=== PATIENT | female | born 1975 | race Caucasian/White ===

== ENCOUNTER 2019-04-23 01:35 | Emergency (ER) | payer BC ==
[~2019-04-23] VITALS: Ht 167.6 cm; Wt 116.1 kg
[~2019-04-23 01:35] MED LIST: ADDERALL 20 MG20 MG PO; ADDERALL 30 MG30 MG; BACTRIM DS TAB1 EACH PO; CITALOPRAM HBR20 MG PO; ESTRADIOL1 MG PO; LEVOTHYROXINE150 MCG PO; LEXAPRO10 MG PO; OMEPRAZOLE40 MG PO; SPIRONOLACTONE50 MG PO; SYNTHROID125 MCG; SYNTHROID137 MCG PO; ULTRAM 50MG50 MG PO; ZOLOFT50 MG PO
[2019-04-23 02:26] LABS: BASOPHILS # (AUTO) 0.1 (0.0-0.1); BASOPHILS % 0.8 % (0.0-1.0); EOSINOPHILS # (AUTO) 0.5 (0.0-0.4); EOSINOPHILS % 6.8 % (0.0-6.0); HEMOGLOBIN 12.5 g/dL (12.0-16.0); LYMPHOCYTES # (AUTO) 2.7 (1.0-3.2); LYMPHOCYTES % 36.6 % (18.0-39.1); MEAN CORPUSCULAR HEMOGLOBIN 29.4 pg (28-32); MEAN CORPUSCULAR HGB CONC 32.9 g/dL (31-35); MEAN CORPUSCULAR VOLUME 89.4 fL (81-99); MONOCYTES # (AUTO) 0.5 (0.2-0.8); MONOCYTES % 7.4 % (4.4-11.3); NEUTROPHILS # (AUTO) 3.5 (2.1-6.9); NEUTROPHILS % 48.1 % (38.7-80.0); PLATELET COUNT 321 x10e3/uL (140-360); RED BLOOD COUNT 4.25 x10e6/uL (3.6-5.1); RED CELL DISTRIBUTION WIDTH 14.2 % (11.7-14.4)
[2019-04-23] MEDS ORDERED: ONDANSETRON HCL INJ 2MG/ML 2ML 2 MG/ML VIAL ONE (02:33)
[2019-04-23] MEDS ORDERED: KETOROLAC TROMETHAMINE 30 MG/ML VIAL ONE (02:33)
[2019-04-23 02:43] LABS: ALANINE AMINOTRANSFERASE 13 IU/L (0-55); ALBUMIN 3.3 g/dL (3.5-5.0); ALKALINE PHOSPHATASE 89 IU/L (40-150); ANION GAP 11.8 mmol/L (8-16); BLOOD UREA NITROGEN 15 mg/dL (7-26); BUN/CREATININE RATIO 21 (6-25); CALCIUM 9.6 mg/dL (8.4-10.2); CARBON DIOXIDE 25 mmol/L (22-29); CHLORIDE 105 mmol/L (98-107); CREATININE, SERUM 0.71 mg/dL (0.57-1.11); EST GLOMERULAR FILTRATION RATE > 60 ML/MIN (60-); GLUCOSE 94 mg/dL (74-118); POTASSIUM 3.8 mmol/L (3.5-5.1); SODIUM 138 mmol/L (136-145)
[2019-04-23 02:46] LABS: BILIRUBIN,URINE NEGATIVE (NEGATIVE); CLARITY,URINE CLOUDY (CLEAR); COLOR,URINE YELLOW (YELLOW); KETONES,URINE NEGATIVE (NEGATIVE); LEUKOCYTE ESTERASE ,URINE TRACE (NEGATIVE); NITRITE,URINE NEGATIVE (NEGATIVE); PROTEIN,URINE DIPSTICK NEGATIVE (NEGATIVE); URINE UROBILINOGEN 0.2 mg/dL (0.2 - 1)
[2019-04-23 02:47] LABS: BACTERIA,URINE MANY /HPF; EPITHELIAL CELLS,URINE FEW /LPF
[2019-04-23 04:51] VITALS: BP 119/68
--- NOTE | 2019-04-23 06:01 | Diagnostic Imaging Report ---
EXAMINATION: CT of the abdomen and pelvis without contrast. TECHNIQUE: Spiral CT images of the abdomen and pelvis were performed from the lung bases to the lesser trochanters. No intravenous contrast was given per renal stone protocol. Coronal and sagittal reformatted images were obtained. COMPARISON: CT abdomen and pelvis without contrast 12/02/2008 CLINICAL HISTORY:Right flank pain DISCUSSION: ABSENCE OF INTRAVENOUS CONTRAST DECREASES SENSITIVITY FOR DETECTION OF FOCAL LESIONS AND VASCULAR PATHOLOGY. ABDOMEN/PELVIS: LOWER THORAX: Linear subsegmental atelectasis versus scarring in the lingula. HEPATOBILIARY: No focal hepatic lesions. No intra or extrahepatic biliary ductal dilation. GALLBLADDER: No radio-opaque stones or sludge. No wall thickening. SPLEEN: No splenomegaly. PANCREAS: No focal masses or ductal dilatation. ADRENALS: No adrenal nodules. KIDNEYS/URETERS: No renal or ureteral calculi, hydronephrosis or obstruction. No perinephric stranding or contour abnormalities. PELVIC ORGANS/BLADDER: Bladder is decompressed but grossly unremarkable. No adnexal masses. PERITONEUM/RETROPERITONEUM: No free air or fluid. LYMPH NODES: No intra-abdominal,retroperitoneal, pelvic or inguinal lymphadenopathy. VESSELS: Mild atherosclerotic calcification of the distal abdominal aorta. GI TRACT: No bowel dilation or evidence of obstruction. Appendix is well identified and normal in caliber. No pericolonic inflammatory changes. BONES AND SOFT TISSUES: No aggressive lytic lesions. Small fat-containing umbilical hernia. IMPRESSION: 1. No renal, ureteral or bladder calculi, hydronephrosis or obstruction Signed by: Dr. Guido Mahoney M.D. on 04/23/2019 5:58 AM
--- OUTSIDE RECORDS SUMMARY | 2019-04-23 06:10 | XMS REPORT ---
Author Author [facility] Address Unknown Phone Unavailable Care Team Providers Care Light Cleaner Name Role Phone Vanessa WHITFIELD Unavailable Unavailable Payers Payer Name Policy Type Policy Number Effective Date Expiration Date Problems This patient has no known problems. Allergies, Adverse Reactions, Alerts Allergy Name Allergy Type Status Severity Reaction(s) Onset Date Inactive Date Treating Clinician Comments No Known Allergies DA Active U 2019-01-27 00:00:00 No Known Allergies DA Active U 2018-08-21 00:00:00 No Known Allergies DA Active U 2016-05-05 00:00:00 Medications This patient has no known medications. Results Test Description Test Time Test Comments Text Results Atomic Results Result Comments CT ABDOMEN/PELVIS WO 2019-04-23 05:56:00 [place] [address] Patient Name: CUATE DEMPSEY MR #: [id number] : 1975 Age/Sex: 43/F Req #: [id number] Adm Physician: Ordered by: VERÓNICA WHITFIELD MD Report #: [id number] Location: ER Room/Bed: Procedure: CT/CT ABDOMEN/PELVIS WO Exam Date: 04/23/19 Exam Time: 0237 REPORT STATUS: Signed EXAMINATION: CT of the abdomen and pelvis without contrast. TECHNIQUE: Spiral CT images of the abdomen and pelvis were performed from the lung bases to the lesser trochanters. No intravenous contrast was given per renal stone protocol. Coronal and sagittal reformatted images were obtained. COMPARISON: CT abdomen and pelvis without contrast 12/02/2008 CLINICAL HISTORY:Right flank pain DISCUSSION: ABSENCE OF INTRAVENOUS CONTRAST DECREASES SENSITIVITY FOR DETECTION OF FOCAL LESIONS AND VASCULAR PATHOLOGY. ABDOMEN/PELVIS: LOWER THORAX: Linear subsegmental atelectasis versus scarring in the lingula. HEPATOBILIARY: No focal hepatic lesions. No intra or extrahepatic biliary ductal dilation. GALLBLADDER: No radio-opaque stones or sludge. No wall thickening. SPLEEN: No splenomegaly. PANCREAS: No focal masses or ductal dilatation. ADRENALS: No adrenal nodules. KIDNEYS/URETERS: No renal or ureteral calculi, hydronephrosis or obstruction. No perinephric stranding or contour ab normalities. PELVIC ORGANS/BLADDER: Bladder is decompressed but grossly unremarkable. No adnexal masses. PERITONEUM/RETROPERITONEUM: No free air or fluid. LYMPH NODES: No intra-abdominal,retroperitoneal, pelvic or inguinal lymphadenopathy. VESSELS: Mild atherosclerotic calcification of the distal abdominal aorta. GI TRACT: No bowel dilation or evidence of obstruction. Appendix is well identified and normal in caliber. No pericolonic inflammatory changes. BONES AND SOFT TISSUES: No aggressive lytic lesions. Small fat-containing umbilical hernia. IMPRESSION: 1. No renal, ureteral or bladder calculi, hydronephrosis or obstruction Signed by: Dr. Daina Mahoney M.D. on 04/23/2019 5:58 AM Dictated By: DAINA MAHONEY MD Transcribed By: JULIA on 04/23/1958 COPY TO: VERÓNICA WHITFIELD MD URINALYSIS COMPLETE 2019-04-21 17:38:00 UA COLOR (test code=COLU) YELLOW YELLOW UA APPEARANCE (test code=APPU) CLEAR CLEAR UA GLUCOSE DIPSTICK (test code=DGLUU) norm mg/dL NEGATIVE UA BILIRUBIN DIPSTICK (test code=BILU) NEGATIVE mg/dL NEGATIVE UA KETONE DIPSTICK (test code=KETU) neg mg/dL NEGATIVE UA SPECIFIC GRAVITY (test code=SGU) 1.020 1.001-1.035 UA BLOOD DIPSTICK (test code=CISCO) neg Efraín/uL NEGATIVE UA PH DIPSTICK (test code=STEVEN) 6.0 5.0-8.0 UA PROTEIN DIPSTICK (test code=PROU) neg mg/dL Neg-15 UA UROBILINIOGEN DIPSTICK (test code=URO) 1 mg/dL 0.0-0.2 UA NITRITE DIPSTICK (test code=MELVI) NEGATIVE NEGATIVE UA LEUKOCYTE ESTERASE DIPSTICK (test code=LEUU) 25 Carla/uL (Trace) uL NEGATIVE UA WBC (test code=WBCU) 0-5 per HPF 0-5 UA RBC (test code=RBCU) 0-3 per HPF 0-5 UA EPITHELIAL CELLS (test code=EPIU) Moderate (5-10/hpf) per HPF Few UA BACTERIA (test code=BACU) MODERATE per HPF NONE UA MUCUS (test code=MUCU) FEW per LPF NONE-FEW Urine Source? Clean CatchUR HCG [id number] 17:38:00* Test Item Value Reference Range Comments UR HCG QUAL (test code=HCGQLU) NEGATIVE This HCGQL test is NOT applicable for MALE patients.Check with nurse about probable order error.If Tumor Marker Test needed, nurse should order test "HCGTU"(Test #550.58295) Urine Source? Clean CatchURINALYSIS [id number] 17:31:00* Test Item Value Reference Range Comments UA COLOR (test code=COLU) YELLOW YELLOW UA APPEARANCE (test code=APPU) CLEAR CLEAR UA GLUCOSE DIPSTICK (test code=DGLUU) norm mg/dL NEGATIVE UA BILIRUBIN DIPSTICK (test code=BILU) NEGATIVE mg/dL NEGATIVE UA KETONE DIPSTICK (test code=KETU) neg mg/dL NEGATIVE UA SPECIFIC GRAVITY (test code=SGU) 1.020 1.001-1.035 UA BLOOD DIPSTICK (test code=CISCO) neg Efraín/uL NEGATIVE UA PH DIPSTICK (test code=STEVEN) 6.0 5.0-8.0 UA PROTEIN DIPSTICK (test code=PROU) neg mg/dL Neg-15 UA UROBILINIOGEN DIPSTICK (test code=URO) 1 mg/dL 0.0-0.2 UA NITRITE DIPSTICK (test code=MELVI) NEGATIVE NEGATIVE UA LEUKOCYTE ESTERASE DIPSTICK (test code=LEUU) 25 Carla/uL (Trace) uL NEGATIVE UA WBC (test code=WBCU) per HPF 0-5 UA RBC (test code=RBCU) per HPF 0-5 UA EPITHELIAL CELLS (test code=EPIU) per HPF Few UA BACTERIA (test code=BACU) per HPF NONE Urine Source? Clean CatchUR HCG [id number] 17:31:00* Test Item Value Reference Range Comments UR HCG QUAL (test code=HCGQLU) Urine Source? Clean CatchBASIC METABOLIC [id number] 13:29:00* Test Item Value Reference Range Comments SODIUM (test code=NA) 139 mmol/L 136-145 POTASSIUM (test code=K) 3.7 mmol/L 3.5-5.1 CHLORIDE (test code=CL) 107.0 mmol/L 98-107 CARBON DIOXIDE (test code=CO2) 26.0 mmol/L 21-32 ANION GAP (test code=GAP) 9.7 10-20 GLUCOSE (test code=GLU) 90 mg/dL 74-106 BLOOD UREA NITROGEN (test code=BUN) 10 mg/dL 7-18 GLOMERULAR FILTRATION RATE (test code=GFR) > 60 mL/min >=60 Estimated GFR by using Modified MDRD formula.Chronic kidney disease is defined as either kidney damageor GFR <60 mL/min/1.73 m2 for >3 months. CREATININE (test code=CREAT) 0.70 mg/dL 0.55-1.02 Note change in reference range due to change in reagent. BUN/CREATININE RATIO (test code=BUN/CREA) 14.3 10-20 CALCIUM (test code=CA) 8.5 mg/dL 8.5-10.1 HEPATIC FUNCTION [id number] 13:29:00* Test Item Value Reference Range Comments TOTAL PROTEIN (test code=PROT) 7.5 gram/dL 6.4-8.2 ALBUMIN (test code=ALB) 3.4 g/dL 3.4-5.0 GLOBULIN (test code=GLOB) 4.1 gram/dL 2.7-4.2 ALBUMIN/GLOBULIN RATIO (test code=A/G) 0.8 0.75-1.50 BILIRUBIN TOTAL (test code=BILT) 0.30 mg/dL 0.0-1.0 BILIRUBIN DIRECT (test code=BILD) 0.13 mg/dL 0.0-0.20 SGOT/AST (test code=AST) 14 IUnit/L 15-37 SGPT/ALT (test code=ALT) 21 IUnit/L 12-78 ALKALINE PHOSPHATASE TOTAL (test code=ALKP) 112 IUnit/L 45-117 Note change in reference range due to change in reagent. [id number] 13:29:00* Test Item Value Reference Range Comments LIPASE (test code=LIP) 60 U/L 73.0-393.0 HCG SERUM [id number] 13:29:00* Test Item Value Reference Range Comments HCG SERUM QUAL (test code=HCGQL) NEGATIVE NEGATIVE This HCGQL test is NOT applicable for MALE patients.Check with nurse about probable order error.If Tumor Marker Test needed, nurse should order test "HCGTU"(Test #550.79464) BASIC METABOLIC [id number] 13:21:00* Test Item Value Reference Range Comments SODIUM (test code=NA) mmol/L 136-145 POTASSIUM (test code=K) mmol/L 3.5-5.1 CHLORIDE (test code=CL) mmol/L 98-107 CARBON DIOXIDE (test code=CO2) mmol/L 21-32 ANION GAP (test code=GAP) 10-20 GLUCOSE (test code=GLU) mg/dL 74-106 BLOOD UREA NITROGEN (test code=BUN) mg/dL 7-18 GLOMERULAR FILTRATION RATE (test code=GFR) mL/min >=60 CREATININE (test code=CREAT) mg/dL 0.55-1.02 BUN/CREATININE RATIO (test code=BUN/CREA) 10-20 CALCIUM (test code=CA) mg/dL 8.5-10.1 HEPATIC FUNCTION [id number] 13:21:00* Test Item Value Reference Range Comments TOTAL PROTEIN (test code=PROT) gram/dL 6.4-8.2 ALBUMIN (test code=ALB) g/dL 3.4-5.0 GLOBULIN (test code=GLOB) gram/dL 2.7-4.2 ALBUMIN/GLOBULIN RATIO (test code=A/G) 0.75-1.50 BILIRUBIN TOTAL (test code=BILT) mg/dL 0.0-1.0 BILIRUBIN DIRECT (test code=BILD) mg/dL 0.0-0.20 SGOT/AST (test code=AST) IUnit/L 15-37 SGPT/ALT (test code=ALT) IUnit/L 12-78 ALKALINE PHOSPHATASE TOTAL (test code=ALKP) IUnit/L 45-117 [id number] 13:21:00* Test Item Value Reference Range Comments LIPASE (test code=LIP) U/L 73.0-393.0 HCG SERUM [id number] 13:21:00* Test Item Value Reference Range Comments HCG SERUM QUAL (test code=HCGQL) NEGATIVE NEGATIVE This HCGQL test is NOT applicable for MALE patients.Check with nurse about probable order error.If Tumor Marker Test needed, nurse should order test "HCGTU"(Test #550.67171) CBC W/O [id number] 13:00:00* Test Item Value Reference Range Comments WHITE BLOOD CELL (test code=WBC) 6.9 K/mm3 4.5-12.5 RED BLOOD CELL (test code=RBC) 4.58 mill/mm3 3.7-5.2 HEMOGLOBIN (test code=HGB) 13.0 gram/dL 11.5-15.5 HEMATOCRIT (test code=HCT) 41.3 % 36.0-46.0 MEAN CELL VOLUME (test code=MCV) 90.2 fL 80-98 MEAN CELL HGB (test code=MCH) 28.4 picogram 27.0-33.0 MEAN CELL HGB CONCETRATION (test code=MCHC) 31.5 gram/dL 33.0-36.0 RED CELL DISTRIBUTION WIDTH (test code=RDW) 14.4 % 11.6-16.2 PLATELET COUNT (test code=PLT) 273 K/mm3 150-450 MEAN PLATELET VOLUME (test code=MPV) 9.4 fL 6.7-11.0 CBC W/O [id number] 12:57:00* Test Item Value Reference Range Comments WHITE BLOOD CELL (test code=WBC) K/mm3 4.5-12.5 RED BLOOD CELL (test code=RBC) mill/mm3 3.7-5.2 HEMOGLOBIN (test code=HGB) 13.0 gram/dL 11.5-15.5 HEMATOCRIT (test code=HCT) 41.3 % 36.0-46.0 MEAN CELL VOLUME (test code=MCV) fL 80-98 MEAN CELL HGB (test code=MCH) picogram 27.0-33.0 MEAN CELL HGB CONCETRATION (test code=MCHC) gram/dL 33.0-36.0 RED CELL DISTRIBUTION WIDTH (test code=RDW) % 11.6-16.2 PLATELET COUNT (test code=PLT) K/mm3 150-450 MEAN PLATELET VOLUME (test code=MPV) fL 6.7-11.0
== END 2019-04-23 05:15 | disposition home or self-care (01) ==
LOC: ER 01:35
DX: R10.31 Right lower quadrant pain (principal); R11.0 Nausea; N30.91 Cystitis, unspecified with hematuria
CPT/HCPCS: 36415; 74176; 80053; 81001; 85025; 87086; 99283; J1885; J2405

== ENCOUNTER 2019-04-25 19:10 | Emergency (ER) | payer BC, OTHER ==
[~2019-04-25] VITALS: Ht 167.6 cm; Wt 116.1 kg
--- NOTE | 2019-04-25 22:00 | NUR ---
PT REQUEST A "VIANEY ROGERS NURSE OR MARYELLEN CASINO CONTROLLER" VITO NIEVES HS TO UNIT TO SPEAK TO PT
[2019-04-25 22:32] LABS: CLARITY,URINE CLEAR (CLEAR); COLOR,URINE YELLOW (YELLOW)
[2019-04-25 22:33] LABS: LEUKOCYTE ESTERASE ,URINE NEGATIVE (NEGATIVE); NITRITE,URINE NEGATIVE (NEGATIVE); PROTEIN,URINE DIPSTICK TRACE (NEGATIVE)
[2019-04-25 22:34] LABS: KETONES,URINE NEGATIVE (NEGATIVE)
[2019-04-25 22:35] LABS: AMPHETAMINES SCREEN,URINE N (NEGATIVE); BENZODIAZEPINES SCREEN,URINE N (NEGATIVE); PHENCYCLIDINE SCREEN,URINE N (NEGATIVE)
[2019-04-25 22:37] LABS: BILIRUBIN,URINE NEGATIVE (NEGATIVE); RBC,URINE 0-5 /HPF (0-5); URINE UROBILINOGEN 0.2 mg/dL (0.2 - 1); WBC,URINE (MAN) 0-5 /HPF (0-5)
[2019-04-25 22:38] LABS: BACTERIA,URINE RARE /HPF; EPITHELIAL CELLS,URINE FEW /LPF
[2019-04-25] MEDS ORDERED: HYDROCODONE/APAP 10MG-325MG TAB PO ONE (23:00)
[2019-04-25] MEDS ORDERED: KETOROLAC TROMETHAMINE 60 MG/2 ML VIAL IM ONE (23:00)
[2019-04-25] MEDS ORDERED: ORPHENADRINE CITRATE 30 MG/ML VIAL IM ONE (23:00)
[2019-04-25] MEDS ORDERED: ONDANSETRON HCL 4 MG ORAL DISINTEGRATING TAB PO ONE (23:15)
[2019-04-25 23:48] LABS: PREGNANCY TEST, URINE NEGATIVE (NEGATIVE)
[2019-04-26 00:58] VITALS: BP 117/69
== END 2019-04-26 00:10 | disposition home or self-care (01) ==
LOC: ER 19:10
DX: M54.41 Lumbago with sciatica, right side (principal); E03.9 Hypothyroidism, unspecified; K21.9 Gastro-esophageal reflux disease without esophagitis; F41.9 Anxiety disorder, unspecified; F32.9 Major depressive disorder, single episode, unspecified
CPT/HCPCS: 80307; 81001; 81025; 96372; 96374; 99283; J1885; J2360; Q0162

== ENCOUNTER 2022-10-21 14:29 | Emergency (ER) | payer BC, OTHER ==
[~2022-10-21] VITALS: Ht 167.6 cm; Wt 93.6 kg
[2022-10-21] MEDS ORDERED: KETOROLAC TROMETHAMINE 30 MG/ML VIAL IV STA (14:56)
[2022-10-21] MEDS ORDERED: SODIUM CHLORIDE 0.9% 1000ML 1,000 ML ONE (15:17)
[2022-10-21] MEDS ORDERED: OMEPRAZOLE20 MG (15:27)
[2022-10-21] MEDS ORDERED: KETOROLAC TROMETHAMINE 30 MG/ML VIAL ONE (15:28)
[2022-10-21] MEDS ORDERED: SODIUM CHLORIDE 0.9% 1000ML 1,000 ML IV ONE (15:30)
[2022-10-21] MEDS ORDERED: KETOROLAC TROME10 MG PO (16:50)
[2022-10-21] MEDS ORDERED: MACROBID 100 M100 MG PO (16:50)
== END 2022-10-21 16:55 | disposition home or self-care (01) ==
LOC: FSED 14:35
DX: R10.31 Right lower quadrant pain (principal); N39.0 Urinary tract infection, site not specified; E03.9 Hypothyroidism, unspecified; K21.9 Gastro-esophageal reflux disease without esophagitis; F41.9 Anxiety disorder, unspecified; Z98.84 Bariatric surgery status
CPT/HCPCS: 74176; 80048; 80076; 81003; 85025; 96374; 99284; J1885; J7030